=== PATIENT | female | born 1980 | race Hispanic/Latino ===

== ENCOUNTER 2017-06-22 10:59 | Inpatient (IN) | payer SELFPAY ==
[2017-06-22] MEDS ORDERED: Ondansetron HCl/PF 4 MG/2 ML Vial ONE (11:24)
[2017-06-22] MEDS ORDERED: Morphine 4 MG/ML VIAL ONE (11:24)
[2017-06-22 11:46] LABS: #Basophils 0.1 thou/uL (0.0-0.2); #Eosinphils 0.2 thou/uL (0.0-0.7); #Lymphocytes 1.9 thou/uL (1.20-3.40); #Monocytes 0.7 thou/uL (0.11-0.59); #Neutrophils 5.8 thou/uL (1.40-6.50); %Eosinophils 2.1 % (0.0-10.0); %Lymphocytes 21.8 % (21.0-51.0); %Monocytes 8.4 % (0.0-10.0); %Neutrophils 66.8 % (42.0-75.0); Mean Corpuscular HGB CONC 31.8 g/dL (32.0-36.0); Mean Corpuscular Hemoglobin 29.7 pg (27.0-31.0); Mean Corpuscular Volume 93.2 fl (81.0-99.0); Platelet Count 394 thou/uL (130-400); RBC Distribution Width 13.4 % (11.5-14.5); Red Blood Cell (RBC) Count 4.39 mill/uL (4.20-5.40); White Blood Cell (WBC) Count 8.7 thou/uL (4.8-10.8)
[2017-06-22 11:56] LABS: Bilirubin Negative (Negative); Blood, Urine Large (Negative); Clarity CLEAR (Clear); Glucose, Urine (Dipstick) Negative (Negative); Leukocyte Negative (Negative); Nitrite Negative (Negative); Protein, Urine (Dipstick) Negative (Neg-Trace); Specific Gravity, Urine 1.011 (1.002-1.036); pH, Urine 7.5 (5.0-9.0)
[2017-06-22 11:57] LABS: Bacteria/HPF None Seen HPF (None Seen); Hyaline Casts/LPF 0-3 HYALINE CAST LPF (0-3 Hyaline); Pathc Cast-AUWi Flag 0.14 (0-2.49); Pregnancy Test - Urine (BHCG) Negative (Negative); Pregu Control Background? CLEAR/WHITE (CLR/WHITE); Pregu Control Bar Appear? YES (CONTROL BAR); RBC/HPF GREATER THAN 50-TNTC HPF (0-3); Specific Gravity 1.011 (1.002-1.036); Squamous Epithelial 0-3 HPF (0-3); WBC/HPF 0-3 HPF (0-3)
[2017-06-22 12:09] LABS: ALT (SGPT) 601 U/L (8-55); AST (SGOT) 826 U/L (5-34); Albumin 3.9 g/dL (3.5-5.0); Alkaline Phosphatase 131 U/L (40-150); Anion Gap 10 mmol/L (10-20); BUN (Urea Nitrogen) 8 mg/dL (7.0-18.7); Bilirubin, Total 0.9 mg/dL (0.2-1.2); Calc. Creatinine Clearance 0 mL/min (70-130); Calcium 9.3 mg/dL (7.8-10.44); Carbon Dioxide 26 mmol/L (22-29); Chloride 105 mmol/L (98-107); Estimated GFR-MDRD Greater than 90; Globulin 3.3 g/dL (2.4-3.5); Glucose 135 mg/dL (70-105); Lipase 22 U/L (8-78); Potassium 4.1 mmol/L (3.5-5.1); Protein, Total 7.2 g/dL (6.0-8.3); Sodium 137 mmol/L (136-145)
--- NOTE | 2017-06-22 12:49 | CT ---
ABDOMEN CT WITHOUT CONTRAST PELVIC CT WITHOUT CONTRAST: Date: 06/22/17 HISTORY: Abdominal pain. COMPARISON: None. TECHNIQUE: Abdomen and pelvic CT performed without contrast. Coronal reformatted images are submitted for interp retation. FINDINGS: ABDOMEN CT: Lung bases are clear. Heart size normal. No pericardial effusion. Descending thoracic aorta and abdom inal aorta have a normal caliber. No periaortic fat stranding. Symmetric attenuation of psoas muscles . Suboptimal evaluation of solid organs due to lack of IV contrast. Grossly, no solid organ abnormality . No gastrohepatic, retrocrural, or periportal lymphadenopathy. Note is made of an umbilical hernia containing mesenteric fat. No mass, lymphadenopathy, free air, or free fluid within the mesentery. Limited evaluation of the alimentary canal due to lack of oral contrast. No evidence of bowel obstruc tion. Normal caliber appendix. Fluid in the gallbladder fossa. Trace amount of fluid in Morison's pouch. Bilateral nonobstructing intrarenal calculi measuring approximately 2.0 mm. Bilaterally, no evidence of obstructive uropathy. PELVIC CT: Uterus and adnexal structures are grossly unremarkable. Note is made of an intrauterine device. No pe lvic mass, lymphadenopathy, free air, or free fluid. No lytic or blastic lesions within the osseous structures. IMPRESSION: 1. Inflammatory change in gallbladder fossa. Right upper quadrant ultrasound is recommended. 2. Bilateral nonobstructing intrarenal calculi. 3. Normal caliber appendix. POS: [facility]
[2017-06-22] MEDS ORDERED: cefOXitin 2 GM, Syringe 1 ML in Sterile Water 10 ML SLOW IVP SCH (14:00)
[2017-06-22] MEDS ORDERED: Sodium Chloride 0.9% 1,000 ML IV SCH (14:15)
--- NOTE | 2017-06-22 14:23 | ULT ---
RIGHT UPPER QUADRANT ULTRASOUND: Date: 06/22/17 PROVIDED CLINICAL HISTORY: Right upper quadrant pain. FINDINGS: Comparison made with CT examination dated 06/22/17. The visualized pancreas appears unremarkable. Liver demonstrates no mass or intrahepatic biliary duct al dilatation. Multiple shadowing mobile echogenic foci are seen within the gallbladder lumen compati ble with gallstones. There is gallbladder wall thickening present without evidence for pericholecysti c fluid. Common duct is not dilated. Right kidney demonstrates no hydronephrosis or mass. IMPRESSION: Cholelithiasis and gallbladder wall thickening. Correlate clinically for acute cholecystitis. POS: [facility]
[2017-06-22] MEDS ORDERED: Morphine 4 MG/ML VIAL SLOW IVP PRN (15:57)
[2017-06-22] MEDS: Dextrose 5 % And 0.9 % NaCl 1,000 ML IV SCH ×2 (16:35→23:12)
[2017-06-22 18:08] VITALS: BMI 24.9
[2017-06-23] MEDS ORDERED: Acetaminophen 1,000 MG in Premix Bag 1 BAG IVPB PRN (06:13)
[2017-06-23] MEDS ORDERED: Morphine 4 MG/ML VIAL IV PRN (06:14)
[2017-06-23] MEDS: Dextrose 5 % And 0.9 % NaCl 1,000 ML IV SCH ×3 (06:18→20:23)
[2017-06-23] MEDS ORDERED: cefOXitin 2 GM in Sodium Chloride 0.9% 100 ML IVPB SCH ×2 (07:30→14:00)
[2017-06-23] MEDS ORDERED: cefOXitin 2 GM, Syringe 1 ML in Sterile Water 10 ML SLOW IVP SCH (07:30)
--- NOTE | 2017-06-23 07:39 | HP ---
CHIEF COMPLAINT: Right upper quadrant abdominal pain. HISTORY OF PRESENT ILLNESS: This is a 36-year-old female, who has a 3-day history of right flank osorio n, radiating to the back, associated with nausea, worse with eating. Ultrasound showed gallstones. PAST MEDICAL HISTORY: Otherwise, obesity. PAST SURGICAL HISTORY: section x2. MEDICATIONS: Ibuprofen. ALLERGIES: No known drug allergies. SOCIAL HISTORY: She is , speaks Green[place]ic. She is not employed. No alcohol. She smokes 3 cig arettes daily. FAMILY HISTORY: Diabetes and hypertension. PHYSICAL EXAMINATION: VITAL SIGNS: Temperature 98.5, pulse 77, blood pressure 120/74. GENERAL: She is a morbidly obese female, lying still, awake, alert. HEENT: No jaundice. Otherwise, unremarkable. LUNGS: Clear. HEART: Regular rate and rhythm. ABDOMEN: Soft, very minimal tenderness in the right upper quadrant. EXTREMITIES: Unremarkable. LABORATORY AND X-RAY FINDINGS: White count 8.7, H and H 13 and 40, platelet count 394. Electrolytes are fine. Elevated glucose of 135. Her AST is elevated at 826, ALT at 601, lipase at 22. ASSESSMENT: Acute cholecystitis with elevated liver functions. Her hCG is negative. Ultrasound keily wed gallstones and thickening of the gallbladder wall. PLAN: Laparoscopic cholecystectomy with cholangiogram. CONSENT: I have discussed the planned procedure as well as the risk of bleeding, infection, injury t o bile duct, injury to bowel, need to open. She understands and gives informed consent.
[2017-06-23] MEDS ORDERED: Bupivacaine/Epinephrine 0.25% 30 ML VIAL ONE (08:38)
[2017-06-23] MEDS ORDERED: Iothalamate Meglumine 60% 50 ML VIAL FS ONE ×2 (08:38→08:40)
[2017-06-23] MEDS ORDERED: Fentanyl 250 MCG/5 ML VIAL ONE (08:49)
[2017-06-23] MEDS ORDERED: Dextrose 5% in Water 1,000 ML IV PRN (10:28)
[2017-06-23] MEDS ORDERED: HYDROcodone/Acetaminophen 10/325 mg Tablet PO PRN (10:28)
[2017-06-23] MEDS ORDERED: Mag-Al 1200 mg/1200 mg/30 ML UDCUP PO PRN (10:28)
[2017-06-23] MEDS ORDERED: hydrALAZINE 20 MG/ML VIAL SLOW IVP PRN (10:28)
[2017-06-23] MEDS ORDERED: Dextrose 50% Abboject 50 ML SYRINGE SLOW IVP PRN (10:28)
[2017-06-23] MEDS ORDERED: Promethazine HCl 25 MG/ML VIAL IM PRN ×2 (10:28→11:00)
[2017-06-23] MEDS ORDERED: Calcium Carbonate 500 MG ChewTAB PO PRN (10:28)
[2017-06-23] MEDS ORDERED: Morphine 4 MG/ML VIAL SLOW IVP PRN (10:45)
--- NOTE | 2017-06-23 10:47 | OP ---
PREOPERATIVE DIAGNOSIS: Acute cholecystitis. SURGEON: Shakeel Powers M.D. PROCEDURE PERFORMED: Laparoscopic cholecystectomy with cholangiogram. INDICATIONS: This is a 36-year-old female, who is morbidly obese, who presented with severe right up per quadrant pain. Ultrasound showed cholelithiasis. FINDINGS: She had acute cholecystitis, thickened gallbladder wall. She had very little dilated cyst ic duct that was long. Required quite a bit of dissection. Cholangiogram showed no filling defects and free flow in the duodenum. PROCEDURE IN DETAIL: After informed consent was obtained, the patient was taken to the operating catrachita m and given general endotracheal anesthesia. She was placed in the supine position. Her abdomen was prepped and draped in usual fashion. Local anesthesia infiltrated subcutaneously and deep. A subum bilical incision was performed. Subcu divided sharply. The fascia grasped and two stay sutures of 0 Vicryl placed through each side of midline. Midline incised. Digital palpation revealed no local a dhesions. A blunt 10-12 mm trocar inserted. Pneumoperitoneum was created to a pressure of 15 mmHg. Zero degree laparoscope inserted under direct vision, three 5 mm ports placed subcostally. Gallblad lisa grasped advanced superiorly. There is quite a bit of inflammation around the gallbladder. This was taken down using blunt and sharp dissection. The distal gallbladder required quite a bit of diss ection to free up the critical view and define the anatomy because the cystic duct was very dilated. Once I got it all dissected out, I clipped the artery, triply ligated the artery and divided it, mad e an incision. The cystic duct inserted cholangiogram catheter and an intraoperative cholangiogram w as performed. This showed free flow in the duodenum, no filling defects. The cystic duct required 2 Endoloops of 0 PDS as it was too large to be clipped. Then the gallbladder was removed from its fos sa utilizing electrocautery. It was placed in an endosac and removed from the abdomen in an endosac. Hemostasis was assured. Trocars and retractors removed. The fascia closed with interrupted 0 Vicr yl sutures. Skin closed with interrupted 4-0 Rapide. Dermabond applied. The patient tolerated the procedure well and was transferred to recovery in good condition. Sponge and needle count verified c orrect x2.
[2017-06-23] MEDS ORDERED: Fentanyl 100 MCG/2 ML VIAL ONE ×2 (10:51→11:17)
[2017-06-23] MEDS ORDERED: Ondansetron HCl/PF 4 MG/2 ML Vial IVP PRN (11:00)
[2017-06-23] MEDS ORDERED: Promethazine HCl 25 MG/ML VIAL SLOW IVP PRN (11:00)
[2017-06-23] MEDS: D5 1/2 NS w/20 mEq KCL 1,000 ML IV SCH ×2 (12:28→20:23)
[2017-06-23] MEDS: Morphine 4 MG/ML VIAL SLOW IVP PRN ×2 (13:27→17:13)
[2017-06-23] MEDS: cefOXitin 2 GM, Syringe 1 ML in Sterile Water 10 ML SLOW IVP SCH ×2 (13:28→21:11)
[2017-06-23] MEDS: Ondansetron HCl/PF 4 MG/2 ML Vial IVP PRN (13:28)
--- NOTE | 2017-06-23 14:50 | RAD ---
CHOLANGIOGRAM: HISTORY: Cholecystectomy. COMPARISON: Ultrasound from the prior day. FINDINGS: A few images of the intraoperative cholangiogram were performed. There is mild intrahepatic biliary dilatation. There appears to be numerous filling defects througho ut the biliary system. IMPRESSION: Numerous filling defects throughout the intrahepatic biliary system, which could be gas bubbles or ch oledocholithiasis. POS: [facility]
[2017-06-23] MEDS ORDERED: Dexamethasone 20 MG/5 ML VIAL ONE (16:30)
[2017-06-23] MEDS ORDERED: Ondansetron HCl/PF 4 MG/2 ML Vial ONE (16:30)
[2017-06-23] MEDS ORDERED: diphenhydrAMINE 50 MG/ML VIAL ONE (16:30)
[2017-06-23] MEDS ORDERED: Lidocaine 1% PF 5 ML VIAL ONE (16:30)
[2017-06-23] MEDS ORDERED: Propofol 200 MG/20 ML VIAL ONE (16:30)
[2017-06-23] MEDS ORDERED: Glycopyrrolate 0.2 MG/ML 5 ML SYRINGE ONE (16:30)
[2017-06-23] MEDS: Famotidine/PF 20 mg/2ml Vial SLOW IVP SCH (20:14)
[2017-06-23] MEDS: HYDROcodone/Acetaminophen 10/325 mg Tablet PO PRN (20:21)
[2017-06-23] MEDS: Famotidine 20 MG TAB PO SCH (20:24)
[2017-06-23 23:20] VITALS: TEMP 98.3
[2017-06-24] MEDS: Dextrose 5 % And 0.9 % NaCl 1,000 ML IV SCH ×2 (02:17→08:55)
[2017-06-24] MEDS: D5 1/2 NS w/20 mEq KCL 1,000 ML IV SCH (03:10)
[2017-06-24] MEDS: cefOXitin 2 GM, Syringe 1 ML in Sterile Water 10 ML SLOW IVP SCH (05:35)
[2017-06-24] MEDS: HYDROcodone/Acetaminophen 10/325 mg Tablet PO PRN (05:39)
[2017-06-24 06:10] LABS: #Basophils 0.1 thou/uL (0.0-0.2); #Eosinphils 0.1 thou/uL (0.0-0.7); #Lymphocytes 3.4 thou/uL (1.20-3.40); #Monocytes 1.2 thou/uL (0.11-0.59); #Neutrophils 10.8 thou/uL (1.40-6.50); %Basophils 0.4 % (0.0-1.0); %Eosinophils 0.4 % (0.0-10.0); %Monocytes 7.7 % (0.0-10.0); %Neutrophils 69.5 % (42.0-75.0); Hemoglobin 12.3 g/dL (12.0-16.0); Mean Corpuscular HGB CONC 32.6 g/dL (32.0-36.0); Mean Corpuscular Hemoglobin 30.5 pg (27.0-31.0); Mean Corpuscular Volume 93.4 fl (81.0-99.0); Platelet Count 360 thou/uL (130-400); RBC Distribution Width 13.7 % (11.5-14.5); Red Blood Cell (RBC) Count 4.04 mill/uL (4.20-5.40); White Blood Cell (WBC) Count 15.5 thou/uL (4.8-10.8)
[2017-06-24 06:26] LABS: ALT (SGPT) 566 U/L (8-55); AST (SGOT) 320 U/L (5-34); Albumin 3.6 g/dL (3.5-5.0); Alkaline Phosphatase 171 U/L (40-150); Anion Gap 9 mmol/L (10-20); BUN (Urea Nitrogen) 4 mg/dL (7.0-18.7); Bilirubin, Total 2.6 mg/dL (0.2-1.2); Calc. Creatinine Clearance 111 mL/min (70-130); Calcium 9.1 mg/dL (7.8-10.44); Carbon Dioxide 27 mmol/L (22-29); Chloride 105 mmol/L (98-107); Estimated GFR-MDRD 86; Globulin 3.1 g/dL (2.4-3.5); Glucose 115 mg/dL (70-105); Lipase 8 U/L (8-78); Potassium 3.9 mmol/L (3.5-5.1); Protein, Total 6.7 g/dL (6.0-8.3); Sodium 137 mmol/L (136-145)
[2017-06-24] MEDS: Ondansetron HCl/PF 4 MG/2 ML Vial IVP PRN (07:41)
[2017-06-24 08:27] VITALS: BP 129/83
--- NOTE | 2017-06-24 08:48 | DIS ---
DISCHARGE DIAGNOSIS: Acute cholecystitis. PROCEDURES DURING ADMISSION: Laparoscopic cholecystectomy with intraoperative cholangiogram. HOSPITAL COURSE: The patient was admitted, taken to the operating room where she underwent a laparos copic cholecystectomy with cholangiogram. Cholangiogram was fine. She has had a little bit of dizzi ness, but that is better now. She is tolerating liquids well. She is ambulating. Pain is controlle d on p.o. medications. She is discharged home on hydrocodone and Zofran. She will follow up with me in 2 weeks.
[2017-06-24] MEDS: Famotidine/PF 20 mg/2ml Vial SLOW IVP SCH (08:52)
[2017-06-24] MEDS: Famotidine 20 MG TAB PO SCH (08:56)
[2017-06-24] MEDS ORDERED: Enoxaparin Sodium 40 MG/0.4 ML SYRINGE SC SCH (09:00)
== END 2017-06-24 10:31 | disposition home or self-care (01) | DRG 419 ==
LOC: ERS 10:59 → SURG A 15:48
PROVIDERS: ADMIT Surgery; ATTEND Surgery
PROC: 0FT44ZZ Resection of Gallbladder, Percutaneous Endoscopic Approach (ICD-10-PCS; principal; 2017-06-23)
PROC: BF131ZZ Fluoroscopy of Gallbladder and Bile Ducts using Low Osmolar Contrast (ICD-10-PCS; 2017-06-23)
DX: K81.0 Acute cholecystitis (principal); E66.9 Obesity, unspecified; Z68.24 Body mass index [BMI] 24.0-24.9, adult; F17.210 Nicotine dependence, cigarettes, uncomplicated
CPT/HCPCS: 36415; 47532; 74176; 76705; 80053; 81003; 81015; 81025; 83690; 85025; 88304; 96365; 96375; A4216; J0131; J0694; J1100; J1200; J1610; J2001; J2270; J2405; J2704; J3010; J7050; Q9961; S0028